=== PATIENT | male | born 2000 | race African-American/Black ===

== ENCOUNTER 2022-01-19 12:19 | Emergency (ER) | payer MEDICAID ==
[~2022-01-19] VITALS: Ht 185.4 cm; Wt 159.0 kg
[2022-01-19 12:30] VITALS: BP 150/77
[2022-01-19] MEDS ORDERED: METF-873 PO (12:36)
[2022-01-19] MEDS ORDERED: GLIP10TA10 PO (12:36)
[2022-01-19] MEDS ORDERED: TOPUD PO (20:50)
[2022-01-19] MEDS ORDERED: IBUP-2028 MT (20:50)
== END 2022-01-19 21:08 | disposition home or self-care (01) ==
LOC: ER 12:38
DX: R05.9 Cough, unspecified (principal); J06.9 Acute upper respiratory infection, unspecified; I10 Essential (primary) hypertension; G47.30 Sleep apnea, unspecified; E11.9 Type 2 diabetes mellitus without complications; E78.00 Pure hypercholesterolemia, unspecified; Z88.0 Allergy status to penicillin; Z20.822 Contact with and (suspected) exposure to COVID-19
CPT/HCPCS: 71045; 87426; 87804; 93005; 99285; C9803

== ENCOUNTER 2023-01-17 15:48 | Emergency (ER) | payer MEDICAID ==
[~2023-01-17] VITALS: Ht 182.9 cm; Wt 155.0 kg
[~2023-01-17 15:48] MED LIST: GLIP10TA10 PO; IBUP-2028 MT; METF-873 PO; TOPUD PO
[2023-01-17 15:57] VITALS: BP 150/94; PULSE 80; RESP 16; O2SAT 100
[2023-01-17] MEDS ORDERED: ACETAMINOPHEN 325MG TABLET PO ONE (16:15)
[2023-01-17 17:56] VITALS: TEMP 97.9
[2023-01-17] MEDS ORDERED: ACETAMINOPHEN 325MG TABLET PO NR (18:00)
[2023-01-17] MEDS ORDERED: IBUP-2029 MT (18:40)
== END 2023-01-17 19:40 | disposition home or self-care (01) ==
LOC: ER 15:52
DX: M79.18 Myalgia, other site (principal); E11.9 Type 2 diabetes mellitus without complications; E78.00 Pure hypercholesterolemia, unspecified; I10 Essential (primary) hypertension; Z90.89 Acquired absence of other organs; Z88.0 Allergy status to penicillin
CPT/HCPCS: 73560; 99283

== ENCOUNTER 2023-03-28 14:17 | Emergency (ER) | payer MEDICAID ==
[~2023-03-28] VITALS: Ht 172.7 cm; Wt 106.0 kg
[~2023-03-28 14:17] MED LIST changes: +IBUP-2029 MT
[2023-03-28 14:50] VITALS: O2SAT 99
[2023-03-28] MEDS ORDERED: METHOCARBAMOL 500MG TABLET PO ONE (17:30)
[2023-03-28] MEDS ORDERED: KETOROLAC 30MG/ML VIAL IM ONE (17:30)
[2023-03-28] MEDS ORDERED: IBUP-2029 MT (17:35)
[2023-03-28] MEDS ORDERED: METH-653 MT (17:35)
[2023-03-28 18:13] VITALS: BP 118/72; PULSE 84; RESP 19; TEMP 98.7
== END 2023-03-28 18:14 | disposition home or self-care (01) ==
LOC: ER 14:43
DX: S33.5XXA Sprain of ligaments of lumbar spine, initial encounter (principal); I10 Essential (primary) hypertension; E78.00 Pure hypercholesterolemia, unspecified; E11.9 Type 2 diabetes mellitus without complications; Z88.0 Allergy status to penicillin; X58.XXXA Exposure to other specified factors, initial encounter; Y93.89 Activity, other specified; Y92.89 Other specified places as the place of occurrence of the external cause; Y99.8 Other external cause status
CPT/HCPCS: 82962; 96372; 99283; J1885; Z7610

== ENCOUNTER 2024-05-09 10:22 | Emergency (ER) | payer MEDICAID ==
[~2024-05-09] VITALS: Ht 182.9 cm; Wt 157.0 kg
[~2024-05-09 10:22] MED LIST changes: -GLIP10TA10 PO; +GLIP10TA17 PO; +METF-1149 PO; -METF-873 PO; +METH-653 MT
[2024-05-09 10:24] VITALS: TEMP 37.1; O2SAT 96
[2024-05-09] MEDS ORDERED: PSEU120T56 MT (11:20)
[2024-05-09 11:54] VITALS: BP 144/79; PULSE 80; RESP 22; O2SAT 97
== END 2024-05-09 11:55 | disposition home or self-care (01) ==
LOC: ER 10:22
DX: R09.81 Nasal congestion (principal); E11.9 Type 2 diabetes mellitus without complications; E78.00 Pure hypercholesterolemia, unspecified; I10 Essential (primary) hypertension; Z88.0 Allergy status to penicillin; F10.90 Alcohol use, unspecified, uncomplicated; Y90.9 Presence of alcohol in blood, level not specified
CPT/HCPCS: 99283